=== PATIENT | female | born 1985 | race Caucasian/White ===

== ENCOUNTER 2016-10-28 10:59 | Day surgery (SDC) | payer OTHER ==
[~2016-10-28] VITALS: Ht 170.2 cm; Wt 76.4 kg
[~2016-10-28 10:59] MED LIST: ADAPALENE 0.1% TP; ADDERALL20 MG PO; BACTRIM,SEPT1 TABLET PO; BENADRYL50 MG PO; CELEXA40 MG; CLINDAMYCIN PHO60 GM TP; CLONIDINE HCL0.1 MG PO; DOXYCYCLINE HY100 MG PO; EFFEXOR XR150 MG PO; KEFLEX500 MG PO; PREDNISONE20 MG PO; PROMETHAZINE HC25 M1 PO; REQUIP0.25 MG PO; SOMA; TRAZODONE HCL50 MG PO; ZANTAC150 MG PO
[2016-10-28] MEDS ORDERED: ZANTAC150 MG PO (11:29)
[2016-10-28] MEDS ORDERED: PRENATAL TABLE1 EAC3 PO (11:29)
[2016-10-28] MEDS ORDERED: METHADONE 22 MG/1 ML PO (11:30)
[2016-10-28] MEDS ORDERED: PROMETHAZINE12.5 M1 PO (11:32)
[2016-10-28 12:21] VITALS: BP 135/82
[2016-10-28 12:39] LABS: MCH 29.3 PG (29.0-34.0); MCHC 33.9 G/DL (30.0-36.0); MCV 86.3 FL (83-99); MEAN PLAT.VOLUME 10.6 uM^3 (9.5-12.4); PLATELET COUNT 239 K/uL (156-360); RBC DIS.WIDTH-CV 13.5 % (11.8-14.6); RBC DIS.WIDTH-SD 42.6 % (39-53); RED BLOOD COUNT 4.17 M/uL (3.80-5.20); WHITE BLOOD COUNT 7.1 K/uL (4.1-10.2)
[2016-10-28] MEDS ORDERED: DOXYCYCLINE HY100 M3 PO (13:56)
[2016-10-28] MEDS ORDERED: Methergine PO (13:58)
[2016-10-28] MEDS ORDERED: IBUPROFEN800 MG PO (13:58)
[2016-10-28 15:45] VITALS: BP 118/73
[2016-10-28 16:37] VITALS: BP 113/68
== END 2016-10-28 16:25 | disposition home or self-care (01) ==
LOC: SDC 10:59
PROVIDERS: Obstetrics & Gynecology
PROC: 10D17ZZ Extraction of Products of Conception, Retained, Via Natural or Artificial Opening (ICD-10-PCS; principal; 2016-10-28)
DX: O02.1 Missed abortion (principal); K21.9 Gastro-esophageal reflux disease without esophagitis; M79.7 Fibromyalgia
CPT/HCPCS: 85027; 86850; 86900; 86901; 88305; J0690; J1100; J1170; J1885; J2405; J3010